=== PATIENT | female | born 1980 | race Two or more races ===

== ENCOUNTER 2017-11-07 18:09 | Emergency (ER) | payer OTHER ==
[~2017-11-07] VITALS: Ht 170.2 cm; Wt 84.4 kg
[~2017-11-07 18:09] MED LIST: BENADRYL25 MG
[2017-11-07] MEDS ORDERED: ATABEX DHA 200200 MG (18:17)
[2017-11-07] MEDS ORDERED: FOLIC ACID0.4 MG (18:17)
== END 2017-11-08 10:32 | disposition home or self-care (01) ==
LOC: ER 18:09
DX: O26.893 Other specified pregnancy related conditions, third trimester (principal); R00.2 Palpitations; Z34.03 Encounter for supervision of normal first pregnancy, third trimester

== ENCOUNTER 2017-12-14 15:43 | Inpatient (IN) | payer OTHER ==
[~2017-12-14] VITALS: Ht 170.2 cm; Wt 87.5 kg
[~2017-12-14 15:43] MED LIST changes: +ATABEX DHA 200200 MG; +FOLIC ACID0.4 MG
== END 2017-12-20 12:20 | DRG 766 ==
LOC: O/R 12-17 06:46 → OB/GYN 12-17 14:01
PROVIDERS: Specialist
PROC: 4A033R1 Measurement of Arterial Saturation, Peripheral, Percutaneous Approach (ICD-10-PCS; 2017-12-17)
PROC: 4A1HXCZ Monitoring of Products of Conception, Cardiac Rate, External Approach (ICD-10-PCS; 2017-12-17)
PROC: 10D00Z1 Extraction of Products of Conception, Low, Open Approach (ICD-10-PCS; principal; 2017-12-17 15:30)
DX: O99.02 Anemia complicating childbirth (principal); Z3A.40 40 weeks gestation of pregnancy; Z37.0 Single live birth; O09.523 Supervision of elderly multigravida, third trimester